=== PATIENT | male | born 1975 | race Two or more races ===

== ENCOUNTER 2019-11-22 09:56 | Emergency (ER) | payer MEDICAID, OTHER ==
[~2019-11-22] VITALS: Ht 157.5 cm; Wt 73.9 kg
[2019-11-22 11:22] VITALS: BP 136/70
[2019-11-22] MEDS ORDERED: ACETAMINOPHEN/CODEINE#3 (300/30mg) TAB PO ONE (12:00)
== END 2019-11-22 12:44 | disposition home or self-care (01) ==
LOC: ER 09:56
DX: S82.832A Other fracture of upper and lower end of left fibula, initial encounter for closed fracture (principal); X50.1XXA Overexertion from prolonged static or awkward postures, initial encounter; Y93.01 Activity, walking, marching and hiking; Y92.89 Other specified places as the place of occurrence of the external cause; Y99.8 Other external cause status
CPT/HCPCS: 29515; 73610